=== PATIENT | male | born 1985 | race Caucasian/White ===

== ENCOUNTER 2017-01-16 15:49 | Emergency (ER) | payer BC, OTHER ==
[2017-01-16] MEDS ORDERED: Iopamidol 612 MG/ML 150 ML Bottle IVPUSH ONE (16:04)
[2017-01-16] MEDS: Lactated Ringers 1,000 ML ONE ×2 (16:10→17:05)
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
[2017-01-16] MEDS: Sodium Chloride 0.9% 10 ML Syringe FLUSH PRN ×2 (16:20→17:00)
--- NOTE | 2017-01-16 16:37 | CT ---
Head CT Technique: Multiple axial sections through the brain were obtained. Intravenous contrast was not utilized. Findings: Calcified skin lesions are seen on both sides of the head. Ventricles along with basal cisterns and sulci over convexities are within normal limits. No abnormal parenchymal densities are seen. No evidence of intracranial hemorrhage. No midline shift or mass effect is seen. Bone window settings were reviewed which shows no acute calvarial abnormality. Visualized sinuses are clear. Impression: 1. Calcified skin lesions on both sides of the head. These presumably are benign but please correlate clinically. 2. Nothing acute is seen intracranially. No acute skull fracture is seen. Diagnostic code #2
--- NOTE | 2017-01-16 16:42 | CT ---
CT cervical spine Technique: Multiple axial sections were obtained from above C1 inferiorly to the mid T1 level. Reconstructed sagittal and coronal images were reviewed. Comparison: No previous cervical spine imaging. Findings: Mild disc space narrowing is noted at C6-C7 with mild anterior osteophytes. Other disc spaces and vertebral body heights are maintained. Mastoid sinuses and middle ear cavities appear clear. Posterior skull base is intact. Vertebral bodies and posterior arches are intact. No fracture is seen. No bony central or bony neural foraminal stenosis is seen. No abnormal subluxation is seen on the reconstructed sagittal images. Impression: 1. Mild degenerative change at C6-C7. 2. Nothing acute is identified on CT study of the cervical spine. Diagnostic code #2
--- NOTE | 2017-01-16 16:54 | CT ---
CT chest Technique: Multiple axial sections were obtained from above the lung apices inferiorly through the lung bases. Intravenous contrast was utilized. Comparison: No prior chest imaging. Findings: No pericardial thickening is seen. Calcified mediastinal and hilar lymph nodes are seen as well as a calcified granuloma within the left lung. Mediastinum and hilar regions are otherwise unremarkable. Lungs are otherwise clear. No pleural effusions are seen. No pneumothorax is identified. No rib fracture is identified. Vertebral body heights are maintained. No compression deformities are seen. Lateral view of the sternum appears intact. Impression: 1. Calcified mediastinal and left hilar lymph nodes as well as calcified granuloma within the left lung. 2. Nothing acute is seen on CT study of the chest. Diagnostic code #2 CT abdomen and pelvis Technique: Multiple axial sections were obtained from above the dome of the diaphragm inferiorly through the pubic symphysis. Intravenous contrast was utilized. No oral contrast was given. Findings: Several calcified granulomas are seen within the spleen. Liver appears within normal limits. Adrenal glands show no nodule. Pancreas is within normal limits. Kidneys show symmetric contrast enhancement without hydronephrosis or mass. Aorta shows no aneurysmal dilatation. No retroperitoneal adenopathy or mesenteric abnormalities are seen. Appendix is seen which appears normal. No pelvic mass or adenopathy is seen. Delayed images shows contrast within the distal ureters and within the bladder. No free fluid or inflammatory change is seen. Bone window settings were reviewed which shows no pelvic or hip fracture. Vertebral body heights are maintained within the lumbar spine. There is moderate disc space narrowing at L5-S1 with mild diffuse posterior disc bulge. Impression: 1. Nothing acute is identified on CT study of the abdomen and pelvis. Incidental findings as noted above. Diagnostic code #2
--- NOTE | 2017-01-16 17:04 | CT ---
CT thoracic spine Technique: Multiple axial sections through the thoracic spine were obtained. Reconstructed coronal and sagittal images were reviewed. Findings: Vertebral bodies and disc spaces are fairly well preserved. No fracture is identified. Neural foramina are patent. No central canal stenosis is seen. No abnormal subluxation is seen. Impression: 1. Nothing acute is seen on CT study of the thoracic spine. Diagnostic code #1
--- NOTE | 2017-01-16 17:06 | CT ---
CT lumbar spine Technique: Multiple axial sections were obtained through the lumbar spine. Reconstructed sagittal and coronal images were reviewed. Comparison: No prior study. Findings: Moderate disc space narrowing is noted at L5-S1. Mild diffuse posterior disc bulge is noted at L5-S1. Moderate circumferential disc bulge noted at L4-L5 with asymmetric disc protrusion on the far left lateral side. No fracture is seen. No abnormal subluxation is seen. Impression: 1. Degenerative change. Nothing acute is seen on CT study of the lumbar spine. Diagnostic code #2
[2017-01-16] MEDS ORDERED: Lactated Ringers 1,000 ML IV SCH (17:15)
[2017-01-16] MEDS ORDERED: Ibuprofen 800 MG Tab PO ONE (19:03)
[2017-01-16] MEDS ORDERED: Ibuprofen 800 MG Tab ONE (19:05)
[2017-01-16 19:41] VITALS: BP 139/92
== END 2017-01-16 19:33 | disposition home or self-care (01) ==
LOC: JD.ED 15:49
DX: S01.01XA Laceration without foreign body of scalp, initial encounter (principal); F10.120 Alcohol abuse with intoxication, uncomplicated; F17.210 Nicotine dependence, cigarettes, uncomplicated; V49.9XXA Car occupant (driver) (passenger) injured in unspecified traffic accident, initial encounter
CPT/HCPCS: 36415; 70450; 71260; 72125; 72128; 72131; 74177; 80053; 81001; 82150; 85025; 85610; 85730; 86850; 86900; 86901; 93005; 96360; 96361; 99285; A9270; G0480; J7050; J7120; Q9967